=== PATIENT | male | born 1995 ===

== ENCOUNTER → 2022-07-29 | Outpatient (CLI) | payer MEDICAID ==
[2022-07-29 16:31] LABS: Urine Bacteria NONE SEEN /hpf (None Seen); Urine Blood Negative /uL (Negative); Urine Mucus FEW (None Seen); Urine Specific Gravity 1.025 (1.001-1.035); Urine WBC 1 /hpf (0 - 3)
[2022-07-29 16:58] LABS: Eosinophils % (auto) 0.6 % (0.0-7.0); Lymphocytes % (auto) 24.3 % (10.0-50.0); Monocytes % (auto) 6.3 % (0.0-12.0); Neutrophils % (auto) 68.2 % (37.0-80.0); White Blood Cell 7.4 10^3/uL (4.4-10.8)
[2022-07-29 16:59] LABS: Basophils # (auto) 0 10 ^3/uL (0-0.2); Basophils % (auto) 0.6 % (0.0-2.0); Eosinophils # (auto) 0 10 ^3/uL (0-0.8); Hematocrit 43.9 % (41.0-53.0); Hemoglobin 14.4 g/dL (13.5-17.5); Lymphocytes # (auto) 1.8 10 ^3/uL (0.4-5.4); Mean Corpuscular Hemoglobin 26.5 pg (28.0-32.0); Mean Corpuscular Hgb Conc. 32.8 g/dL (32.0-36.0); Mean Corpuscular Volume 80.9 fL (80.0-100.0); Monocytes # (auto) 0.5 10 ^3/uL (0-1.3); Red Blood Cells 5.43 10^6/uL (4.5-5.90); Red Cell Distribution Width 14.1 % (11.8-14.3)
[2022-07-29 18:02] LABS: Albumin 4.2 g/dL (3.4-5.0); BUN/Creatinine Ratio 14.2; Calcium 9.6 mg/dL (8.5-10.1); Potassium 4.6 mmol/L (3.5-5.1)
[2022-07-29 18:06] LABS: Bilirubin, Total 0.6 mg/dL (0.2-1.0); Total Protein 7.7 g/dL (6.4-8.2)
== END | disposition home or self-care (01) ==
LOC: LAB 15:47
PROVIDERS: ATTEND Internal Medicine
DX: Z00.00 Encounter for general adult medical examination without abnormal findings (principal)
CPT/HCPCS: 36415; 80053; 80061; 81001; 85025; 85652

== ENCOUNTER → 2024-07-24 | Outpatient (CLI) | payer MEDICAID ==
[2024-07-24 13:53] LABS: Triglycerides 37 mg/dL (< 150)
[2024-07-24 13:54] LABS: LDL Cholesterol 85 mg/dL (< 100)
[2024-07-24 13:55] LABS: Cholesterol 152 mg/dL (< 200)
[2024-07-24 13:57] LABS: HDL Cholesterol 65 mg/dL (40-59)
== END | disposition home or self-care (01) ==
LOC: LAB 12:06
PROVIDERS: ATTEND Internal Medicine
DX: E78.5 Hyperlipidemia, unspecified (principal)
CPT/HCPCS: 36415; 80061

== ENCOUNTER → 2025-03-30 | Outpatient (CLI) | payer MEDICAID | END | disposition home or self-care (01) | LOC: LAB 10:56 | PROVIDERS: ATTEND Internal Medicine | DX: Z01.84 Encounter for antibody response examination (principal) | CPT/HCPCS: 36415; 86706; 86735; 86762; 86765; 86787 ==

== ENCOUNTER 2025-06-27 09:18 | Outpatient (CLI) | payer MEDICAID ==
[2025-06-27 10:05] LABS: Urine Protein, UAD Negative (Negative)
[2025-06-27 10:08] LABS: Hematocrit 43.3 % (41.0-53.0); Hemoglobin 14.2 g/dL (13.5-17.5); Mean Corpuscular Hemoglobin 26.2 pg (28.0-32.0); Mean Corpuscular Volume 79.8 fL (80.0-100.0); Nucleated Red Blood Cells % 0.0 %
[2025-06-27 10:40] LABS: Anion Gap 10 (5-15); BUN/Creatinine Ratio 11.7 (10.0-20.0); Blood Urea Nitrogen 14 mg/dL (9-23); Calcium 9.6 mg/dL (8.7-10.4); Carbon Dioxide 29 mmol/L (20-31); Chloride 103 mmol/L (98-107); Glucose 83 mg/dL (74-106); Potassium 4.9 mmol/L (3.5-5.1); Sodium 142 mmol/L (136-145); Total Protein 7.1 g/dL (5.7-8.2); Triglycerides 54 mg/dL (< 150)
[2025-06-27 10:41] LABS: Albumin 4.4 g/dL (3.2-4.8); Bilirubin, Total 0.6 mg/dL (0.2-1.0); Cholesterol 164 mg/dL (< 200); HDL Cholesterol 59 mg/dL (40-59)
[2025-06-27 10:50] LABS: Alanine Aminotransferase 46 U/L (7-40); Alkaline Phosphatase 43 U/L (46-116)
== END 2025-06-27 17:00 | disposition home or self-care (01) ==
LOC: LAB 09:18
PROVIDERS: ATTEND Internal Medicine
DX: E78.5 Hyperlipidemia, unspecified (principal); Z00.00 Encounter for general adult medical examination without abnormal findings
CPT/HCPCS: 36415; 80053; 80061; 81001; 83036; 84443; 85025